=== PATIENT | female | born 1960 | race Caucasian/White ===

== ENCOUNTER 2019-05-11 12:58 | Outpatient (CLI) | payer BC, SELFPAY ==
--- NOTE | ~2019-05-11 | US_ITS ---
EXAMINATION: US right upper quadrant EXAM DATE: 05/11/2019 13:45 INDICATION: Alcoholic cirrhosis. Cholecystectomy. TECHNIQUE: Multiple grayscale and Doppler images of the abdomen right upper quadrant were obtained (meg y a technologist who performed the scan) and subsequently reviewed. There is no prior study for valentín king. FINDINGS: The pancreatic head and body are normal in appearance. The pancreatic tail is not visualized. Nodul ar liver contour consistent with cirrhosis. There are no focal liver lesions identified. There is no evidence of intrahepatic biliary duct dilation. Portal venous flow was seen in the hepatopedal, n ormal direction and has normal Doppler waveform. No right-sided hydronephrosis. Common bile duct measures 5 mm, which is normal. The gallbladder fossa is unremarkable. IMPRESSION: Nodular liver contour consistent with cirrhosis. No focal lesions. Reviewed, dictated and finalized at location A. RACT PROJECT MANAGER
== END 2019-05-11 12:59 | disposition home or self-care (01) ==
LOC: ANHIMG 13:07
PROVIDERS: PCP Family Medicine
DX: K70.30 Alcoholic cirrhosis of liver without ascites (principal)
CPT/HCPCS: 76705

== ENCOUNTER 2019-11-22 09:42 | Outpatient (CLI) | payer BC, SELFPAY ==
--- NOTE | ~2019-11-22 | CT_ITS ---
EXAMINATION: CT abdomen pelvis w con INDICATION: Alcoholic cirrhosis of the liver without ascites TECHNIQUE: Computed tomographic images of the abdomen and pelvis were obtained after the administrati on of 100 cc of Omnipaque 350 intravenous contrast. The dose-length product (DLP) was 1013.88 mGy-cm. Automated exposure control and iterative reconstruction technique were employed. COMPARISON: 10/27/2018 FINDINGS: The lung bases are clear. The heart size is normal. The liver surface is nodular, consisten t with history of cirrhosis. No focal liver lesion is identified. The gallbladder is surgically absen t. The spleen, pancreas, and adrenal glands are normal. The kidneys are unremarkable. No pathological ly enlarged abdominal or pelvic lymph nodes are identified. There is no free intraperitoneal gas or e vidence of bowel obstruction. There is enhancement of the ileocecal valve with wall thickening and sl ight extension of soft tissue density into the pericecal soft tissues at the cranial aspect of the te rminal ileum. There is no ascites. The appendix is not visualized. There is mild lumbar spondylosis. IMPRESSION: 1. Cirrhosis without evidence of ascites. 2. Wall thickening and adjacent soft tissue density of the terminal ileum. Findings could reflect Director Physical Therapy hn's disease with a blind-ending fistula or chronic diverticulitis. Reviewed, dictated and finalized at location A. IMPRESSION: 1. Cirrhosis without evidence of ascites. 2. Wall thickening and adjacent soft tissue density of the terminal ileum. Find ings could reflect Crohn's disease with a blind-ending fistula or chronic diver ticulitis.
[2019-11-22 10:10] LABS: Estimated Glomerular Filt Rate > 60
== END 2019-11-22 09:43 | disposition home or self-care (01) ==
PROVIDERS: PCP Family Medicine; Visit Provider Internal Medicine Gastroenterology
DX: K70.30 Alcoholic cirrhosis of liver without ascites (principal)
CPT/HCPCS: 36415; 74177; Q9967

== ENCOUNTER 2019-11-28 21:16 | Emergency (ER) | payer BC, SELFPAY ==
--- NOTE | ~2019-11-28 | XR_ITS ---
EXAMINATION: XR abdomen NG/feed tube insert EXAM DATE: 11/29/2019 01:25 INDICATION: Perforation. Nasogastric tube placement. TECHNIQUE: Frontal projection(s) of the abdomen for interpretation. There is no prior study for valentín king. FINDINGS: Feeding tube with tip projecting over gastric body/antrum, expected position. Nonobstructi ve upper abdominal bowel gas pattern. There are no osseous abnormalities identified. IMPRESSION: Feeding tube in position. Reviewed, dictated and finalized at location A. IMPRESSION: Feeding tube in position.
--- NOTE | ~2019-11-28 | CT_ITS ---
EXAMINATION: CT chest abdomen w con DATE: 11/28/2019 22:49 INDICATION: Abdomen pain. Cirrhosis. TECHNIQUE: Computed tomography (CT) of the abdomen and pelvis was performed with 100 cc Omnipaque 350 intravenous contrast. The dose-length product was 989.46 mGy-cm. Automated exposure control and iter ative reconstruction technique were employed. COMPARISON: CT dated 11/22/2019. FINDINGS: Lung bases are unremarkable. Heart size normal. No significant pleural or pericardial effus ion. There is moderate free intraperitoneal air. There is abnormal thickening of multiple small bowel loop s in the expected location of the terminal ileum with surrounding phlegmonous change in the mesentery . There is a fluid collection in the right pelvis above the liver, consistent with abscess. This flui d collection measures proximally 4.2 cm AP x2.5 cm transverse x4.7 cm craniocaudal. Cirrhosis of the liver. The spleen, pancreas, adrenal glands and kidneys are unremarkable. Complex fl uid and gas in the right lower abdomen pain, suspicious for second site of abscess. No acute osseous abnormality. IMPRESSION: 1. Progression of abnormally thickened distal small bowel in the expected location of the terminal il eum with surrounding mesenteric phlegmonous change. Findings suspicious for inflammatory bowel diseas e such as Crohn's disease. There is free intraperitoneal air, consistent with perforation with at m[address] 2 separate abnormal fluid collections, compatible with abscess formation. Dr. Sagastume discussed with Dr. Yenifer Leo MD at 11/28/2019 23:02 CDT. Reviewed, dictated and finalized at location A. IMPRESSION: 1. Progression of abnormally thickened distal small bowel in the expected locat ion of the terminal ileum with surrounding mesenteric phlegmonous change. Findi ngs suspicious for inflammatory bowel disease such as Crohn's disease. There is free intraperitoneal air, consistent with perforation with at least 2 separate abnormal fluid collections, compatible with abscess formation. Dr. Sagastume discussed with Dr. Yenifer Leo MD at 11/28/2019 23:02 CDT.
[2019-11-28 21:29] VITALS: BP 123/61; PULSE 113; RESP 17; TEMP 36.2; O2SAT 96
[2019-11-28 22:05] LABS: Basophils Percent Auto 0.3 % (0.2-1.2); Eosinophils Percent Auto 0.1 % (0-4.4); Hematocrit 41.6 % (37.0-47.0); Hemoglobin 14.4 g/dL (12.0-15.0); Immature Granulocyte Absolute 0.06 K/mm3 (0.00-0.031); Immature Granulocyte Percent A 0.4 % (0-0.5); Lymphocytes Absolute Auto 0.83 K/mm3 (0.9-3.2); Lymphocytes Percent Auto 5.6 % (18.3-44.2); Mean Corpuscular HGB Conc 34.6 g/dl (32-36); Mean Corpuscular Hemoglobin 31.8 pg (26-34); Mean Corpuscular Volume 91.8 fl (80-100); Mean Platelet Volume 9.9 fl (7.4-10.4); Monocytes Absolute Auto 0.4 K/mm3 (0.1-0.6); Monocytes Percent Auto 2.7 % (2.6-8.5); Neutrophils Absolute Auto 13.6 K/mm3 (1.3-6.7); Neutrophils Percent Auto 90.9 % (45.5-73.1); Platelet Count Result 229 k/mm3 (150-375); Red Blood Count 4.53 M/mm3 (4.2-5.4); Red Cell Distribution Width 12.5 % (11.5-14.5); White Blood Count 14.9 K/mm3 (4.5-10.0)
--- NOTE | 2019-11-28 22:09 | ED.GENADULT ---
HPI - General Adult General Chief complaint: Unspecified Stated complaint: abd pain pain s/p colonoscopy. Time Seen by Provider: 11/28/19 22:09 Source: patient and family Mode of arrival: ambulatory Limitations: no limitations History of Present Illness HPI narrative: Pt with a history of hypertension, hyperlipidemia, cirrhosis who presents to the ED for evaluation of abdominal pain. Pt with recent colonoscopy at [facility] today, and now with abdominal pain. Pt with some distension as well. She denies urinary retention. Denies fever or chills. She reports nausea without emesis. She states she is not passing any gas. Patient states she had a prolonged colonoscopy, did end up requiring intubation and had a prolonged recovery time. She was discharged home from [facility] approximately 3 PM. Patient states she has had consistent abdominal pain, gas type pain throughout her abdomen since that time. Related Data Home Medications Medication Instructions Recorded Confirmed cholecalciferol (vitamin D3) 25 1,000 unit PO DAILY 02/23/19 mcg (1,000 unit) capsule mecobalamin (vitamin B12) 1,000 1,000 mcg SUBLINGUAL DAILY 02/23/19 mcg disintegrating tablet,sublingual Allergies Allergy/AdvReac Type Severity Reaction Status Date / Time YENIFER Inhibitors Allergy Unknown cough Verified 03/01/19 14:40 lisinopril Allergy Unknown COUGH Verified 03/01/19 14:40 Review of Systems Review of Systems: Narrative: CONSTITUTIONAL: Denies fever, chills, or sweats. EYES: Denies visual changes, redness, or discharge. ENT: Denies rhinorrhea, congestion, sore throat, or otalgia. CARDIOVASCULAR: Denies chest pain, palpitations, or edema. RESPIRATORY: Denies cough or dyspnea. GASTROINTESTINAL: Reports abdominal pain, nausea, denies vomiting or diarrhea GENITOURINARY: Denies dysuria or hematuria. Denies urinary retention. SKIN: Denies rash or itching. MUSCULOSKELETAL: Denies back pain, joint pain, or myalgia. NEUROLOGIC: Denies headache, numbness, or weakness. [facility] Past Medical History Medical History Arthritis of carpometacarpal (CMC) joint of both thumbs DJD of left shoulder Elevated blood uric acid level Elevated liver enzymes Essential (primary) hypertension GERD with esophagitis Irritable bowel syndrome without diarrhea Mixed hyperlipidemia Obesity, unspecified Shoulder pain, acute Unilateral primary osteoarthritis of first carpometacarpal joint, left hand Social History Social History Smoking status: Never smoker Alcohol intake: current Gender identity (if verbalized by the patient): Female Exam Narrative: Exam Narrative: GENERAL: Awake, alert, conversant HEAD: Normocephalic, atraumatic. EYES: PERRLA and EOMI. ENT: Nares clear, no rhinorrhea or epistaxis. Mucous membranes moist. NECK: Supple. CHEST: No respiratory distress, breathing even and non labored HEART: Tachycardic rate, sinus rhythm ABDOMEN: Abdominal distention, tender throughout, positive guarding EXTREMITIES: Normal range of motion. No edema. SKIN: Warm, dry, no rash. NEURO:No focal deficits. Alert and oriented x3 Course Vital Signs Vital signs: Vital Signs Temperature 36.2 C L 11/28/19 21:29 Pulse Rate 113 H 11/28/19 21:29 Respiratory Rate 17 11/28/19 21:29 Blood Pressure 123/61 11/28/19 21:29 Pulse Oximetry 96 11/28/19 21:29 Temperature 37.6 C H 11/29/19 00:28 Pulse Rate 100 11/29/19 02:20 Respiratory Rate 13 11/29/19 02:20 Blood Pressure 109/68 11/29/19 02:20 Pulse Oximetry 95 11/29/19 02:20 Medical Decision Making MDM Narrative Medical decision making narrative: Patient presented for evaluation of abdominal pain following a colonoscopy earlier today at [facility]. At the time of assessment, patient's vital signs are stable, she is mildly tachycardic. Patient has a d
[2019-11-28 22:22] LABS: Lactic Acid Reflex 2.4 mmol/L (0.7-2.1)
[2019-11-28 22:23] LABS: Alanine Aminotransferase 24 U/L (4-35); Albumin Level 3.9 g/dL (3.5-5.1); Alkaline Phosphatase 85 U/L (38-126); Anion Gap 10 mmol/L (8-16); Aspartate Amino Transferase 29 U/L (14-36); Bilirubin,Total 1.5 mg/dL (0.2-1.3); Blood Urea Nitrogen 9 mg/dL (7-17); Calcium 8.6 mg/dL (8.4-10.2); Carbon Dioxide 23 mmol/L (22-30); Chloride 101 mmol/L (98-107); Estimated CRCL calculation 78 ml/min; Estimated Glomerular Filt Rate > 60; Glucose 164 mg/dL (65-105); Lipase 22 U/L (23-300); Potassium 3.7 mmol/L (3.4-5.0); Sodium 134 mmol/L (137-145)
[2019-11-28 22:29] LABS: Add Urine Microscopic? YES; Appearance Urine Clear (Clear); Bacteria Urine Trace /hpf; Bilirubin Urine Negative (Negative); Blood Urine Negative (Negative); Color Urine Yellow (Yellow); Glucose Urine UA Negative (Negative); Ketones Urine 1+ mg/dL (Negative); Leukocyte Esterase Ur Negative LEU/UL (Negative); Mucus Urine Rare /lpf; Nitrate Urine Negative (Negative); Protein Urine Negative (Negative); RBC Urine 0-2 /hpf (0-2); Squamous Epithelial Cell Urine Moderate /hpf (Few); Urobilinogen Urine Negative mg/dL (<2.0); WBC Urine 0-3 /hpf
[2019-11-28] MEDS: ONDANSETRON INJ 4 MG/2 ML VIAL IV PUSH (22:59)
[2019-11-28] MEDS: SODIUM CHLORIDE 0.9% IV 1,000 ML 999 ML IV CONT (23:00)
[2019-11-28] MEDS: MORPHINE SULFATE 4 MG/ML INJ IV PUSH (23:01)
[2019-11-28 23:51] VITALS: PULSE 84
--- NOTE | 2019-11-29 00:24 | PC.NURSE ---
Answered triage questions for [facility].
[2019-11-29 00:28] VITALS: BP 105/60; PULSE 109; RESP 15; TEMP 37.6; O2SAT 96
[2019-11-29] MEDS: metroNIDAZOLE 500 MG/ISO 100ML 500 MG/100 ML BAG 100 MG IVPB (00:40)
[2019-11-29 01:03] LABS: Reflex Lactic Acid Yes or No Add Lactic
--- NOTE | 2019-11-29 01:15 | PC.NURSE ---
Pt. accepted at [facility] by Dr. Camejo, waiting on a bed at this time.
[2019-11-29 02:20] VITALS: BP 109/68; PULSE 100; RESP 13; O2SAT 95
--- NOTE | 2019-11-29 02:30 | PC.NURSE ---
Called [facility] for update on pt. bed. Should have a bed soon
--- NOTE | 2019-11-29 02:30 | PC.NURSE ---
Pt placed on 2L nc
--- NOTE | 2019-11-29 03:02 | PC.NURSE ---
Called report to [facility]
--- NOTE | 2019-11-29 03:03 | PC.NURSE ---
[facility] accepted patient for trasfer to [facility], ETA [id number]
--- NOTE | 2019-11-29 03:06 | PC.NURSE ---
Pt bed number is [id number] report at [phone]
[2019-11-29 04:01] VITALS: BP 110/64; PULSE 108; RESP 19; TEMP 36.8; O2SAT 93
== END 2019-11-29 04:03 | disposition short-term general hospital (02) ==
PROVIDERS: Emergency Provider Emergency Medicine; PCP Family Medicine
DX: K63.1 Perforation of intestine (nontraumatic) (principal); K63.0 Abscess of intestine; E78.5 Hyperlipidemia, unspecified; I10 Essential (primary) hypertension; K74.60 Unspecified cirrhosis of liver; K21.0 Gastro-esophageal reflux disease with esophagitis; K58.9 Irritable bowel syndrome, unspecified; E78.2 Mixed hyperlipidemia; E66.9 Obesity, unspecified; Z68.30 Body mass index [BMI] 30.0-30.9, adult; M18.9 Osteoarthritis of first carpometacarpal joint, unspecified
CPT/HCPCS: 36415; 71260; 74160; 80053; 81001; 83605; 83690; 85025; 96361; 96365; 96367; 96375; 96376; 99285; J1170; J2270; J2405; J2543; J3010; J7030; Q9967

== ENCOUNTER 2020-03-16 15:11 | Outpatient (CLI) | payer BC, SELFPAY ==
--- NOTE | ~2020-03-16 | MM_ITS ---
EXAMINATION: MM screening beatriz BI w britton HISTORY: Screening TECHNIQUE: Craniocaudal and mediolateral oblique 3-D tomosynthesis images were obtained and synthetic 2-D images were generated. CAD analysis was submitted and interpreted. COMPARISON: Comparison to multiple prior studies sequentially, with oldest reviewed study dated 06/15. BREAST PARENCHYMAL COMPOSITION: There are scattered areas of fibroglandular density. FINDINGS: There is no evidence of suspicious mass, calcification, or architectural distortion to sugg est malignancy in either breast. There has been no suspicious interval change. IMPRESSION: 1. No mammographic evidence of malignancy. 2. Recommend routine screening mammography in one year. BI-RADS Category 1: Negative Reviewed, dictated and finalized at location A. ER UP
== END 2020-03-16 15:12 | disposition home or self-care (01) ==
LOC: ANHIMG 15:12
PROVIDERS: PCP Family Medicine; Visit Provider Family Medicine
DX: Z12.31 Encounter for screening mammogram for malignant neoplasm of breast (principal)
CPT/HCPCS: 77063; 77067

== ENCOUNTER 2020-06-26 14:59 | Outpatient (CLI) | payer BC, SELFPAY ==
--- NOTE | ~2020-06-26 | CT_ITS ---
EXAMINATION: CT abdomen wo/w con DATE: 06/26/2020 15:40 INDICATION: Cirrhosis of the liver TECHNIQUE: Computed tomography (CT) of the abdomen was performed without Jose Martin swelling with 100 c c Omnipaque 350 intravenous contrast. Automated exposure control and iterative reconstruction [employer] ue were employed. Exam dose: 1930.37 mGy-cm total exam DLP. COMPARISON: 11/24/2019 CT chest abdomen 11/22/2019 CT abdomen pelvis FINDINGS: The lung bases are clear of infiltrate or consolidation. Heart size is normal. No pericardi al or pleural effusion. Status post cholecystectomy. No bile duct or pancreatic duct dilatation. There is surface nodularity of liver consistent with clinical history of cirrhosis. Hepatic steatosis . No hepatic space-occupying mass lesion is detected. Splenic size is within normal range. Normal morphology of the adrenal glands. No urinary tract calculus or hydroureter nephrosis is evident. No renal mass lesion. Normal caliber of the abdominal aorta. No intraperitoneal or retroperitoneal mass lesion or adenopath y or ascites. Duodenal diverticulum. Status post right colectomy. Fat-containing umbilical hernia. No suspicious osteolytic or osteoblastic lesions are noted. IMPRESSION: Cirrhosis and hepatic steatosis Status post right colectomy Reviewed, dictated and finalized at Location A. Reviewed, dictated and finalized at location B.
[2020-06-26 15:32] LABS: Estimated Glomerular Filt Rate > 60
== END 2020-06-26 15:00 | disposition home or self-care (01) ==
PROVIDERS: PCP Family Medicine; Visit Provider Internal Medicine Gastroenterology
DX: C7B.8 Other secondary neuroendocrine tumors (principal); K74.60 Unspecified cirrhosis of liver; Z90.49 Acquired absence of other specified parts of digestive tract; K76.0 Fatty (change of) liver, not elsewhere classified; K42.9 Umbilical hernia without obstruction or gangrene; K57.10 Diverticulosis of small intestine without perforation or abscess without bleeding
CPT/HCPCS: 74170; Q9967

== ENCOUNTER → 2020-09-27 12:08 | Outpatient (CLI) | payer BC, SELFPAY ==
--- NOTE | ~2020-09-27 | XR_ITS ---
XR shoulder RT min 2V 09/27/2020 12:22 INDICATION: Right shoulder pain PROCEDURE: 4 views right COMPARISON: No prior studies for comparison. FINDINGS: Fracture, dislocation or subluxation is not identified. The soft tissues appear within norm al limits. No foreign bodies are identified. IMPRESSION: 1: NO ACUTE BONE OR JOINT ABNORMALITY IDENTIFIED. Reviewed, dictated and finalized at location B.
== END ==
PROVIDERS: Visit Provider Physician Assistant
DX: M75.81 Other shoulder lesions, right shoulder (principal)
CPT/HCPCS: 73030

== ENCOUNTER 2021-04-18 14:55 | Outpatient (CLI) | payer BC, SELFPAY ==
--- NOTE | ~2021-04-18 | MM_ITS ---
EXAMINATION: MM screening beatriz BI w britton HISTORY: Screening TECHNIQUE: Craniocaudal and mediolateral oblique 3-D tomosynthesis images were obtained and synthetic 2-D images were generated. CAD analysis was submitted and interpreted. COMPARISON: Comparison to multiple prior studies sequentially, with oldest reviewed study dated 06/15. BREAST PARENCHYMAL COMPOSITION: There are scattered areas of fibroglandular density. FINDINGS: There is no evidence of suspicious mass, calcification, or architectural distortion to sugg est malignancy in either breast. There has been no suspicious interval change. IMPRESSION: 1. No mammographic evidence of malignancy. 2. Recommend routine screening mammography in one year. BI-RADS Category 1: Negative Reviewed, dictated and finalized at location A. NG CAPTAIN
== END 2021-04-18 14:56 | disposition home or self-care (01) ==
LOC: ANHIMG 14:56
PROVIDERS: PCP Family Medicine; Visit Provider Family Medicine
DX: Z12.31 Encounter for screening mammogram for malignant neoplasm of breast (principal)
CPT/HCPCS: 77063; 77067

== ENCOUNTER → 2021-08-23 16:11 | Outpatient (CLI) | payer BC, SELFPAY ==
--- NOTE | ~2021-08-23 | XR_ITS ---
XR knee LT min 4V 08/23/2021 16:34 Indication: Knee pain Procedure: 4 views left knee Comparison: No prior studies for comparison. Findings: There is mild-moderate osteoarthritis of the left knee.No fracture, subluxation or dislocat ion. No significant joint effusion. No foreign bodies. Impression: 1: Mild-moderate osteoarthritis of the left knee. Reviewed, dictated and finalized at location B. Impression: 1: Mild-moderate osteoarthritis of the left knee.
--- NOTE | ~2021-08-23 | XR_ITS ---
EXAMINATION: XR knee RT min 4V DATE: 08/23/2021 16:34 INDICATION: Right knee pain. TECHNIQUE: 4 views of right knee including standing views were obtained. COMPARISON: None. FINDINGS: Bone alignment is normal. No fracture. There is moderate osteoarthritis of medial compartme nt and mild osteoarthritis of lateral and patellofemoral compartments. There is a small knee joint ef fusion. IMPRESSION: 1. Moderate right knee osteoarthritis. 2. Small right knee joint effusion. Reviewed, dictated and finalized at location A.
== END ==
PROVIDERS: PCP Physician Assistant; Visit Provider Physician Assistant
DX: M16.0 Bilateral primary osteoarthritis of hip (principal); M25.461 Effusion, right knee
CPT/HCPCS: 73564

== ENCOUNTER 2022-01-21 10:36 | Outpatient (CLI) | payer BC, SELFPAY ==
--- NOTE | ~2022-01-21 | US_ITS ---
EXAMINATION: US abdomen limited DATE: 01/21/2022 10:59 INDICATION: Cirrhosis TECHNIQUE: Multiple grayscale and Doppler ultrasound images of the abdomen were obtained. COMPARISON: 05/11/2019 FINDINGS: The head and body of the pancreas are normal. The pancreatic tail is obscured by bowel gas. The liver is normal with normal echogenicity and echotexture. There is mild nodularity of the liver surface. Normal hepatopetal flow in the main portal vein. The gallbladder is surgically absent. The n ormal common bile duct measures 5 mm. IMPRESSION: 1. Nodularity of the liver surface, consistent with history of cirrhosis. Reviewed, dictated and finalized at location A.
== END 2022-01-21 10:37 | disposition home or self-care (01) ==
PROVIDERS: PCP Emergency Medicine; Visit Provider Internal Medicine Gastroenterology
DX: K74.60 Unspecified cirrhosis of liver (principal)
CPT/HCPCS: 76705

== ENCOUNTER 2022-04-14 09:08 | Outpatient (CLI) | payer BC, SELFPAY ==
--- NOTE | ~2022-04-14 | NM_ITS ---
EXAMINATION: NM elias stress w perfusion DATE: 04/14/2022 11:53 INDICATION: Chest pain. TECHNIQUE: Rest images were obtained following intravenous administration of 8.9 mCi Tc99m tetrofosmi n (Myoview). The patient was infused intravenously with Lexiscan (regadenoson). Then, 20.3 mCi Tc99m tetrofosmin (Myoview) was administered intravenously, and stress images were obtained. Data was recon structed into short axis and horizontal and vertical long axis SPECT images. Gated SPECT images were also obtained. COMPARISON: CT abdomen 06/26/2020 FINDINGS: There is a small, mild, fixed perfusion defect involving apical lateral segment of left vicky tricle, consistent with infarct. No reversible component to suggest ischemia. There is no segmental w all motion abnormality. Left ventricular ejection fraction measures > 70%. IMPRESSION: 1. Small area of mild infarct involving apical lateral segment of left ventricle. 2. Normal left ventricular ejection fraction measuring >70%. Reviewed, dictated and finalized at location A. H CUTTER IMPRESSION: 1. Small area of mild infarct involving apical lateral segment of left ventricl e. 2. Normal left ventricular ejection fraction measuring >70%.
--- NOTE | 2022-04-14 09:46 | EST_ITS ---
Patient Info Name: Serena Roman Age: 62 years : 1960 Gender: Female Ht: 65 in Wt: 200 lbs BSA: 2.07 m2 HR: 63 bpm BP: 102 / 75 mmHg Heart Rhythm: Sinus Rhythm Exam Date: 04/14/2022 10:10 AM Exam Location: [facility] Stress Patient Status: Outpatient Admit Date: 04/14/2022 Staff Ordering Physician: Francisco Casarez MD Attending Provider: Francisco Caasrez MD Exercise Technologist: Mayi Conroy CT Exercise Physician: Scottie Coulter DO Exam Type: CA stress elias w NM Study Info Indications R07.9 - Chest pain, unspecified A regadenoson stress test was performed. Summary 1. 1. Negative lexiscan stress test for ischemic ST changes by ECG criteria. 2. 2. Stable hemodynamics throughout the test. 3. 3. Nuclear scan to follow and will be reported separately. Please correlate with it. 4. 4. Patient informed of the above results. Protocol: Lexiscan Stress ECG Details Stage: REST Duration (min): 1 min : 25 sec HR (bpm): 62 SBP (mmHg): 102 DBP (mmHg): 75 Stage: REST Duration (min): 14 min : 19 sec HR (bpm): 64 SBP (mmHg): 102 DBP (mmHg): 75 Stage: STAGE 1 Duration (min): 0 min : 59 sec HR (bpm): 80 SBP (mmHg): 102 DBP (mmHg): 77 Stage: RECOVERY Duration (min): 1 min : 0 sec HR (bpm): 83 SBP (mmHg): 102 DBP (mmHg): 77 Stage: RECOVERY Duration (min): 2 min : 0 sec HR (bpm): 83 SBP (mmHg): 102 DBP (mmHg): 77 Stage: RECOVERY Duration (min): 3 min : 0 sec HR (bpm): 80 SBP (mmHg): 106 DBP (mmHg): 72 Stage: RECOVERY Duration (min): 3 min : 0 sec HR (bpm): 80 SBP (mmHg): 106 DBP (mmHg): 72 Rest HR: 64 bpm Peak HR: 85 bpm Rest Sys BP: 102 mmHg Peak Sys BP: 106 mmHg Max Pred HR: 156 bpm % Max Pred HR: 54 % Target HR: 133 bpm Max RPP: 9,010 bpm*mmHg Termination Reason: Completed protocol Cardiac Symptoms: Shortness of breath Total Time: 1 min : 0 sec Rest Dubois BP: 75 mmHg Peak Dubois BP: 72 mmHg Total Dose: 0.4 mg Resting ECG Sinus rhythm, delayed precordial R/S transition, low voltage- precordial leads, borderline T wave in ant/inf leads. Report Signatures
== END 2022-04-14 09:09 | disposition home or self-care (01) ==
PROVIDERS: PCP Emergency Medicine; Visit Provider Emergency Medicine
DX: R07.9 Chest pain, unspecified (principal)
CPT/HCPCS: 78452; 93017; A9502; J2785

== ENCOUNTER 2022-07-14 13:12 | Outpatient (CLI) | payer BC, SELFPAY ==
--- NOTE | ~2022-07-14 | US_ITS ---
US abdomen limited INDICATION: Cirrhosis PROCEDURE: Realtime right upper abdominal ultrasound. COMPARISON: No prior studies for comparison. FINDINGS: The pancreas is normal without focal mass or pancreatic ductal dilation. Liver echotexture is heterogeneous and slightly increased. Liver surface is nodular, compatible with cirrhosis. No dis crete hepatic masses are seen. There is normal directional flow in the portal vein. Gallbladder surgically absent. Common bile duct measures 6 mm. No sonographic King's sign. IMPRESSION: 1: Cirrhosis. Reviewed, dictated and finalized at location B. IMPRESSION: 1: Cirrhosis.
== END 2022-07-14 13:13 | disposition home or self-care (01) ==
PROVIDERS: PCP Emergency Medicine; Visit Provider Internal Medicine Gastroenterology
DX: K74.69 Other cirrhosis of liver (principal)
CPT/HCPCS: 76705

== ENCOUNTER 2022-09-12 14:54 | Outpatient (CLI) | payer BC, SELFPAY ==
--- NOTE | ~2022-09-12 | MM_ITS ---
EXAMINATION: MM screening beatriz BI w britton HISTORY: Screening TECHNIQUE: Craniocaudal and mediolateral oblique 3-D tomosynthesis images were obtained and synthetic 2-D images were generated. CAD analysis was submitted and interpreted. COMPARISON: Comparison to multiple prior studies sequentially, with oldest reviewed study dated 11/2014. BREAST PARENCHYMAL COMPOSITION: Breast composition is almost entirely fatty FINDINGS: There is no evidence of suspicious mass, calcification, or architectural distortion to sugg est malignancy in either breast. There has been no suspicious interval change. IMPRESSION: 1. No mammographic evidence of malignancy. 2. Recommend routine screening mammography in one year. BI-RADS Category 1: Negative Reviewed, dictated and finalized at location A.
== END 2022-09-12 14:55 | disposition home or self-care (01) ==
LOC: ANHIMG 14:58
PROVIDERS: PCP Emergency Medicine; Visit Provider Emergency Medicine
DX: Z12.31 Encounter for screening mammogram for malignant neoplasm of breast (principal)
CPT/HCPCS: 77063; 77067

== ENCOUNTER 2023-02-16 12:40 | Outpatient (CLI) | payer MEDICARE, SELFPAY ==
--- NOTE | ~2023-02-16 | US_ITS ---
EXAMINATION: US abdomen limited DATE: 02/16/2023 13:58 INDICATION: Cirrhosis, unspecified. TECHNIQUE: Multiple grayscale and Doppler ultrasound images of the abdomen were obtained. COMPARISON: Ultrasound 07/14/2022 FINDINGS: The visualized portions of the head and body of pancreas are normal. The liver demonstrates surface nodularity and coarsened echotexture, consistent with cirrhosis. The gallbladder is absent. The common duct is normal and measures 3 mm. There is normal flow in main portal vein. IMPRESSION: 1. Cirrhosis of the liver. Reviewed, dictated and finalized at location A. M FLATTENER IMPRESSION: 1. Cirrhosis of the liver.
== END 2023-02-16 12:41 | disposition home or self-care (01) ==
PROVIDERS: PCP Emergency Medicine; Visit Provider Internal Medicine Gastroenterology
DX: K74.60 Unspecified cirrhosis of liver (principal)
CPT/HCPCS: 76705

== ENCOUNTER 2023-09-15 14:39 | Outpatient (CLI) | payer MEDICARE, SELFPAY ==
--- NOTE | ~2023-09-15 | DEXA_ITS ---
Bone Density Report Name: JARROD ANDRE Age: 63 Sex: Female Ethnicity: White Date of : 1960 Indication: postmenopausal; screening for osteoporosis; parental hip fracture; history of glucocorticoids; cancer; hysterectomy; Referring Provider: RACHEL HOWARD Study: Bone densitometry was performed. Exam Date: September 15, 2023 Accession number: [id number] Bone Density: Region BMD T-score Z-score Classification AP Spine(L1-L4) 1.202 1.4 3.2 Normal Femoral Neck (Left) 0.847 0.0 1.5 Normal Total Hip (Left) 1.144 1.7 2.9 Normal Femoral Neck (Right) 0.857 0.1 1.6 Normal Total Hip (Right) 1.084 1.2 2.4 Normal Total Hip Mean 1.114 1.5 2.7 Normal World Health Organization criteria for BMD impression classify patients as: Normal (T-score at or above -1.0), Osteopenia (T-score between -1.0 and -2.5), or Osteoporosis (T-score at or below -2.5). 10-year Fracture Risk: FRAX not reported because: All T-scores for Spine Total, Hip Total, Femoral Neck at or above -1.0 Clinical Information Provided by Patient: Parent has had a hip fracture Has taken Glucocorticoids Has used the following medications: Vitamin D Has the following medical conditions: Cancer, Hysterectomy Patient maximum height was 65 Menopause Age: 19 No regular weight bearing exercise Drinks caffeinated beverages Onset of menses at age 12 Number of children 0 Impression: The patient has normal bone mass. The patient has risk factors, including: parental hip fracture, history of glucocorticoid therapy. Discussion: BONE DENSITY IS ABOVE THE MINIMUM DESIRABLE LEVEL AT ALL SKELETAL SITES TESTED. This patient?s bone mineral density is above the minimum desirable level (T-score -1.0 or better) at all sites measured. The patient should follow a healthful lifestyle (good nutrition with adequate calcium and vitamin D, and appropriate weight-bearing exercise). Follow-Up: Consider repeating this study in 5 years or sooner if there is some new clinical indication. Reported by: KARRI on 09/15/2023 3:23:00 PM. Reviewed, dictated and finalized at location ARosanna TOWNSEND
--- NOTE | ~2023-09-15 | MM_ITS ---
EXAMINATION: MM screening beatriz BI w britton HISTORY: Screening TECHNIQUE: Craniocaudal and mediolateral oblique 3-D tomosynthesis images were obtained and synthetic 2-D images were generated. CAD analysis was submitted and interpreted. COMPARISON: Comparison to multiple prior studies sequentially, with oldest reviewed study dated 04/2015. BREAST PARENCHYMAL COMPOSITION: Not dense: There are scattered areas of fibroglandular density. FINDINGS: There is no evidence of suspicious mass, calcification, or architectural distortion to sugg est malignancy in either breast. There has been no suspicious interval change. IMPRESSION: 1. No mammographic evidence of malignancy. 2. Recommend routine screening mammography in one year. BI-RADS Category 1: Negative Reviewed, dictated and finalized at location B.
== END 2023-09-15 14:40 | disposition home or self-care (01) ==
PROVIDERS: PCP Emergency Medicine; Visit Provider Emergency Medicine
DX: Z12.31 Encounter for screening mammogram for malignant neoplasm of breast (principal); Z78.0 Asymptomatic menopausal state
CPT/HCPCS: 77063; 77067; 77080

== ENCOUNTER 2023-12-21 13:21 | Outpatient (CLI) | payer MEDICARE, SELFPAY ==
--- NOTE | 2023-12-21 13:57 | ECHO_ITS ---
Patient Info Name: Serena Humphries Age: 63 years : 1960 Gender: Female Ht: 65 in Wt: 177 lbs BSA: 1.94 m2 HR: 73 bpm BP: 103 / 71 mmHg Heart Rhythm: Sinus Rhythm Technical Quality: Good Exam Date: 12/21/2023 2:15 PM Exam Location: Echo Lab Patient Status: Outpatient Admit Date: 12/21/2023 Staff Ordering Physician: Scottie Coulter DO Cartoonist Special Effects: Jesi Gilmore RDCS Attending Provider: Scottie Coulter DO Referring Physician: Yfn AGUILAR; Exam Type: CA echo doppler color flow Study Info Indications - other benign neuroendocrine tumors Complete two-dimensional, color flow and Doppler transthoracic echocardiogram is performed. Summary 1. Complete two-dimensional, color flow and Doppler transthoracic echocardiogram is performed. 2. Left ventricular chamber dimension is normal. 3. Left ventricular systolic function is normal, estimated at 60-65%. 4. The left ventricular diastolic function is grade I diastolic dysfunction. 5. E/e' 7 is not elevated. 6. No pulmonary hypertension, estimated pulmonary arterial systolic pressure is 16 mmHg. Left Ventricle E/e' 7 is not elevated. Left ventricular chamber dimension is normal. Left ventricular systolic function is normal, estimated at 60-65%. The left ventricular diastolic function is grade I diastolic dysfunction. Right Ventricle Right ventricular systolic function is normal and with normal TAPSE 2.2 cm. Right ventricular chamber dimension is normal. Left Atria Left atrial chamber dimension is normal. Right Atria Right atrial chamber dimension is normal. Aortic Valve The aortic valve is trileaflet. There is no aortic valve stenosis. There is no aortic valve regurgitation. Pulmonic Valve There is no pulmonic regurgitation. Mitral Valve There is no mitral valve stenosis. There is no mitral valve regurgitation. Tricuspid Valve There is no tricuspid valve regurgitation. No pulmonary hypertension, estimated pulmonary arterial systolic pressure is 16 mmHg. Pericardium/Pleural There is no pericardial effusion. Inferior Vena Cava Normal inferior vena cava with >50% collapse upon inspiration consistent with normal right atrial pressure, 5 mmHg. Aorta The aortic root size at the sinus of Valsalva is normal. Left Ventricular Outflow Tract Name Value Normal LVOT 2D LVOT Diameter 1.9 cm LVOT Doppler LVOT Peak Gradient 5 mmHg LVOT Mean Gradient 3 mmHg LVOT VTI 23 cm LVOT VTI/AV VTI Ratio 1.0 LVOT Stroke Volume 64 ml LVOT CO 4.5 l/min LVOT CI 2.3 l/min/m2 Pulmonic Valve Name Value Normal PV Doppler PV Peak Gradient 3 mmHg Mitral Valve Name Value
== END 2023-12-21 13:22 | disposition home or self-care (01) ==
LOC: ANHCARD 13:22
PROVIDERS: PCP Emergency Medicine; Visit Provider Internal Medicine Cardiovascular Disease
DX: D3A.8 Other benign neuroendocrine tumors (principal); I25.10 Atherosclerotic heart disease of native coronary artery without angina pectoris
CPT/HCPCS: 93306

== ENCOUNTER 2024-09-07 09:14 | Outpatient (CLI) | payer MEDICARE, SELFPAY ==
--- NOTE | ~2024-09-07 | US_ITS ---
US abdomen limited INDICATION: Alcoholic cirrhosis PROCEDURE: Realtime right upper abdominal ultrasound. COMPARISON: No prior studies for comparison. FINDINGS: The pancreas is normal without focal mass or pancreatic ductal dilation. Liver surface clay ears nodular, consistent with cirrhosis. There is normal directional flow in the portal vein. Gallbladder is surgically absent. Common bile duct measures 4.5 mm. No sonographic King's sign. IMPRESSION: 1: Cirrhosis of the liver. Reviewed, dictated and finalized at location A. IMPRESSION: 1: Cirrhosis of the liver.
--- OUTSIDE RECORDS SUMMARY | 2024-09-07 09:23 | XMS_ITS | Encounter Summary ---
Author Organization [facility] Address [address] [place] [address] Phone Care Team Providers Care Legal Administrator Name Role Phone Lore Camejo MD Unavailable [phone] Leslie Piña MD Unavailable [phone] Harry Moser MD Unavailable [phone] Crys Nye Primary Care Provider Francisco Casarez MD Primary Care Provider [phone] Aleah Schwartz MD Primary Care Provider + Encounter Details Date Type Department Care Team (Latest Contact Info) Description 06/26/2020 Orders Only [facility] Scanning, Provider Social History Tobacco Use Types Packs/Day Years Used Date Smoking Tobacco: Never Smokeless Tobacco: Never Alcohol Use Standard Drinks/Week Comments Not Currently 0 (1 standard drink = 0.6 oz pur e alcohol) Previously heavy Comments No Sex and Gender Information Value Date Recorded Sex Assigned at Not on file 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 Gender Identity Not on file Sexual Orientation Not on file documented as of this encounter Plan of Treatment Not on file documented as of this encounter Procedures Procedure Name Priority Date/Time Associated Diagnosis Comments SCAN - RADIOLOGY/IMAGING 06/26/2020 documented in this encounter Results * SCAN - RADIOLOGY/IMAGING (06/26/2020) Anatomical Region Laterality Modality Other Provider Scanning Final Result documented in this encounter Visit Diagnoses Not on filedocumented in this encounter Care Teams Legal Administrator Relationship Specialty Start Date End Date Crys Nye PA [address] [place] [address] PCP - General Physician Engine Lathe Tender 11/25/21 08/24/22 Francisco Casarez MD [address] [place] [address] PCP - General Family Medicine 08/25/22 02/17/24 Aleah Schwartz MD [address] [place] [address] [place] [address] PCP - General Family Medicine 02/18/24 Lore Camejo MD Consulting Physician Colon and Rectal Surgery 12/14/19 Leslie Piña MD [address] [place], [place] [id number] Medical Oncology 08/21/21 Harry Moser MD [address] [place] [address] Transplant Hepatology 08/21/21 documented as of this encounter
--- OUTSIDE RECORDS SUMMARY | 2024-09-07 09:23 | XMS_ITS | Encounter Summary ---
Author Organization [facility] Healthcare Address [address] [place] [address] Care Team Providers Care Needle Straightener Name Role Phone Lore Camejo MD Unavailable [phone] Leslie Piña MD Unavailable [phone] Harry Moser MD Unavailable [phone] Crys Nye Primary Care Provider Francisco Casarez MD Primary Care Provider [phone] Aleah Schwartz MD Primary Care Provider + Encounter Details Date Type Department Care Team (Late st Contact Info) Description 02/07/2020 Telephone [facility] [place] [address] Janet Long, RT Social History Tobacco Use Types Packs/Day Years Used Date Smoking Tobacco: Never Smokeless Tobacco: Never Alcohol Use Standard Drinks/Week Comments Not Currently 0 (1 standard drink = 0.6 oz pur e alcohol) Previously heavy Comments No Sex and Gender Information Value Date Recorded Sex Assigned at Not on file 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 Gender Identity Not on file Sexual Orientation Not on file documented as of this encounter Plan of Treatment Not on file documented as of this encounter Visit Diagnoses Not on filedocumented in this encounter Care Teams Needle Straightener Relationship Specialty Start Date End Date Crys Nye PA [address] [place] [address] PCP - General Physician Gas Pumping Station Supervisor 11/25/21 08/24/22 Francisco Casarez MD [address] [place] [address] PCP - General Family Medicine 08/25/22 02/17/24 Aleah Schwartz MD [address] [place] [address] [place] [address] PCP - General Family Medicine 02/18/24 Lore Camejo MD Consulting Physician Colon and Rectal Surgery 12/14/19 Leslie Piña MD [address] [place] [address] Medical Oncology 08/21/21 Harry Moser MD [address] [place] [address] Transplant Hepatology 08/21/21 documented as of this encounter
--- OUTSIDE RECORDS SUMMARY | 2024-09-07 09:23 | XMS_ITS | Continuity of Care Document ---
Author Organization [facility] Address [id number] [place] [address] [address] [place] [address] Phone Care Team Providers Care Client Specialist Name Role Phone Jone Figueroa Unavailable Unavailable Advance Directives Directive Yes / No Effective Date File Name No Information Encounters Encounter Description Practice Location Reason(s) For Visit Diagnoses Date Provider Providers Copied on Encounter [facility], [id number] [place] [address] [address], [place], [place], [id number], [place] tel:[phone] [facility] No Information [address] [facility] , [facility] [address], [place], [address], [place]. tel:[phone] Referring Provider: Africa Bermudez [facility] [address], [place], [place], [facility]. tel:[phone] Family History Family Member Type Diagnosis Age At Onset No Information Payers Payer name Insurance type Covered republican ID Authoriza tijosh(s) [employer] SOI CI [id number] Social History Type Description Quantity Date Captured Comments Sex Female Smoking Status No Information Chief Complaint And Reason For Visit No Information Reason For Referral Reason For Referral No Information History Of Present Illness Encounter Date Complaint History Of Prese nt Illness No Information Functional Status Date Functional Assessmen t No Information Instructions Date Instruction Additional Infor mation No Information Assessments Type Assessment Date No Information Patient Care Teams Name Effective Dates (start - stop) Status Members No Information
--- OUTSIDE RECORDS SUMMARY | 2024-09-07 09:23 | XMS_ITS | Encounter Summary ---
Author Organization [facility] Address [address] [place] [address] Phone Care Team Providers Care Electrical Designer Drafter Name Role Phone Lore Camejo MD Unavailable [phone] Leslie Piña MD Unavailable [phone] Harry Moser MD Unavailable [phone] Francisco Casarez MD Primary Care Provider [phone] Aleah Schwartz MD Primary Care Provider + Encounter Details Date Type Department Care Team (Latest Contact Info) Description 10/03/2022 Orders Only [facility] Scanning, Provider Social History Tobacco Use Types Packs/Day Years Used Date Smoking Tobacco: Never Smokeless Tobacco: Never Alcohol Use Standard Drinks/Week Comments Not Currently 0 (1 standard drink = 0.6 oz pur e alcohol) Previously heavy Comments No Sex and Gender Information Value Date Recorded Sex Assigned at Not on file 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 Gender Identity Not on file Sexual Orientation Not on file documented as of this encounter Plan of Treatment Not on file documented as of this encounter Procedures Procedure Name Priority Date/Time Associated Diagnosis Comments SCAN - LABS 10/03/2022 documented in this encounter Results * SCAN - LABS (10/03/2022) us Provider Scanning Final Result documented in this encounter Visit Diagnoses Not on filedocumented in this encounter Care Teams Electrical Designer Drafter Relationship Specialty Start Date End Date Francisco Casarez MD [address] [place] [address] PCP - General Family Medicine 08/25/22 02/17/24 Aleah Schwartz MD [address] [place] [address] [place] [address] PCP - General [facility] Medicine 02/18/24 Lore Camejo MD Consulting Physician Colon and Rectal Surgery 12/14/19 Leslie Piña MD [address] [place] [address] Medical Oncology 08/21/21 Harry Moser MD [address] [place] [address] Transplant Hepatology 08/21/21 documented as of this encounter
--- OUTSIDE RECORDS SUMMARY | 2024-09-07 09:23 | XMS_ITS | Encounter Summary ---
Author Organization [facility] Healthcare Address [address] [place] [address] Care Team Providers Care Medical Physics Teacher Name Role Phone Lore Camjeo MD Unavailable [phone] Leslie Piña MD Unavailable [phone] Harry Moser MD Unavailable [phone] Crys Nye Primary Care Provider Francisco Casarez MD Primary Care Provider [phone] Aleah Schwartz MD Primary Care Provider + Encounter Details Date Type Department Care Team (Late st Contact Info) Description 11/19/2018 Telephone [facility] Radiology [address] [place] [address] Vero Crawley RN Social History Tobacco Use Types Packs/Day Years Used Date Smoking Tobacco: Never Smokeless Tobacco: Never Alcohol Use Standard Drinks/Week Comments Not Currently 0 (1 standard drink = 0.6 oz pur e alcohol) Previously heavy Comments Unknown Sex and Gender Information Value Date Recorded Sex Assigned at Not on file 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 hydroCHLOROthiazi de (MICROZIDE) 12.5 mg capsule Take 12.5 mg by mouth daily 11/09/2019 added in this encounter Care Teams Medical Physics Teacher Relationship Specialty Start Date End Date Crys Nye PA [address] [place] [address] PCP - General Physician Log Rafter 11/25/21 08/24/22 Francisco Casarez MD [address] [place] [address] PCP - General Family Medicine 08/25/22 02/17/24 Aleah Schwartz MD [address] [place] [address] [place] [address] PCP - General Family Medicine 02/18/24 Lore Camejo MD Consulting Physician Colon and Rectal Surgery 12/14/19 Leslie Piña MD [address] [place] [address] Medical Oncology 08/21/21 Harry Moser MD [address] [place] [address] Transplant Hepatology 08/21/21 documented as of this encounter
--- OUTSIDE RECORDS SUMMARY | 2024-09-07 09:23 | XMS_ITS | Clinical Summary ---
Author Organization [facility] Address [address] [place] [address] Care Team Providers Care Plateman Name Role Phone Lore Camejo MD Unavailable [phone] Leslie Piña MD Unavailable [phone] Harry Moser MD Unavailable [phone] Aleah Schwartz MD Primary Care Provider + Allergies No known active allergies Medications ALPRAZolam (XANAX) 0.25 mg tablet Take 1 tablet (0.25 mg total) by mouth nightly as needed prn 2 9 Active estrogens-methy lTESTOSTERone (EEMT,COVARYX) 1.25-2.5 mg per tablet Take 1 tablet by mouth daily as needed 3 to 4 per week 5 9 Active allopurinol (ZYLOPRIM) 100 mg tablet Take 1 tablet (100 mg total) by mouth daily Active levothyroxine sodium (TIROSINT) 75 mcg capsule Take 1 capsule (75 mcg total) by mouth masticator before breakfast Active nortriptyline (PAMELOR) 10 mg capsule Take 1 capsule (10 mg total) by mouth nightly Active cholecalciferol -soy isoflavone 2,000-64 unit-mg tablet Take by mouth 2 (two) times a day Active Ozempic 0.25 mg or 0.5 mg (2 mg/3 mL) pen injector injection Q weekly 2mg 3 Active irbesartan (AVAPRO) 75 mg tablet Take 1 tablet (75 mg total) by mouth 4 Active biotin 1 mg capsule Take 6,000 mcg/day by mouth daily Active matteo/linolenic/ linoleic/oleic (matteo seed oil-omega 3-6-9) 1,000 mg (630 mg-210 mg-72mg) capsule Take 515 mg by mouth daily Active coenzyme Q10 200 mg capsule Take 1 capsule (200 mg total) by mouth daily Active metoprolol XL (TOPROL-XL) 50 mg extended release tablet Take 0.5 tablets (25 mg total) by mouth daily Active pravastatin (PRAVACHOL) 20 mg tablet 1 tablet (20 mg total) daily 4 Active Active Problems Patient Care Coordination No te Formatting of this note migh t be different from the original. 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 It is rather puzzling and troubling the pain can last for nearly 3 days. I will check a CT scan of the abdomen and pelvis. If this is unrevealing, I will likely have her return for an upper endoscopy. Further recommendations based on the results of the studies. Hypothyroid 11/05/2018 Gout 11/05/2018 Mixed hyperlipidemia 11/05/2018 Essential hypertension 11/05/2018 Alcohol dependence in remission 11/05/2018 Assessment & Plan (12/31/2023 5:54 PM CDT): She understands the importance of long-term abstinence. A return to heavy drinking would clearly lead to additional liver injury and decompensation. Alcoholic cirrhosis of liver without ascites Assessment & Plan (12/31/2023 5:54 PM CDT): No evidence of significant decompensation based on the absence of complications of portal hypertension and intact hepatic synthetic function. I will continue to screen for hepatocellular carcinoma every 6 months. She is scheduled for a CT of the spine in February,. I will see if a CT of the abdomen can be scheduled on the same day. She will return in 1 year or when clinically indicated. Assessment & Plan (12/15/2022 11:30 AM CDT): She has well-compensated alcohol related cirrhosis. Last alcohol beverage in 2018; remains sober since. Labs 09/2022 w/ nml AST/ALT, Tbili, and PLT. Today, encouraged ongoing abstinence. No evidence of ascites, or HE. No history of varices and on metoprolol which can likely act as NSBB. We will obtain next Liver US in 6 month (02/2023). We will stagger w/ her CT for NET surveillance (which will fulfill HCC screening). She will return in 1 year or earlier as clinically indicated. Assessment & Plan (11/25/2021 4:27 PM CDT): Pt with alcohol related cirrhosis and now stopped alcohol use since 2018. Her cirrhosis is well compensated. Labs from 08/2021 normal Tbili. - Continue complete alcohol abstinence - No HE - No ascites - No history of varices and she is on metoprolol that can act as NSBB - We will get next US in 02/2022, then she will have her CT for NET surveillance that will fulfill hepatoma screening. Assessment & Plan (11/10/2019 6:54 PM CDT): Well compensated and without obvious evidence of ascites or hepatic encephalopathy. I stressed the importance of ongoing efforts at alcohol abstinence. The laboratory work today shows intact hepatic synthetic function. Assessment & Plan (11/05/2018 5:21 PM CDT): For clinical history and liver biochemical abnormalities are consistent with alcoholic liver disease. The radiographic findings are consistent with cirrhosis. However, her obesity and features of the metabolic syndrome suggests there may be a component of non-alcoholic steatohepatitis. Furthermore, we have to rule out other causes of liver disease such as autoimmune hepatitis and other metabolic disorders. I will check labs today. Depending on the results, she may need a liver biopsy. I encouraged her to maintain abstinence from alcohol. She should continue with efforts at weight loss. We discussed scarring of the liver due to longstanding inflammation. This scarring can lead to an increase in pressure within the blood vessels, leading to varicose type veins in the esophagus, fluid in the abdomen, and the buildup of toxins that can cause confusion. Cirrhosis increases the risk of the development of hepatocellular carcinoma. This necessitates screening for liver cancer with an abdominal ultrasound approximately every 6 months. We discussed the potential need for a liver transplant, if liver function worsened and there are no obvious contraindications. Abnormal mammogram 12/20/2015 Encounters Date Type Department Care Team Description 08/22/2024 Telephone [facility] [address] [place] [address] [facility] [place] [address] [place] [address] Marizol Goetz 08/19/2024 Telephone [facility] [address] [place] [address] [place] [address] [place] [address] Marizol Goetz 08/08/2024 Telephone [facility] [address] [place] [address] [place] [address] [place] [address] Aleah Finn Schedule Ultrasound from Last 3 Months Immunizations Immunization Administration Dates Next Due Influenza, Quadrivalent, Spl it, Preservative Free, Intramuscular 01/09/2020,03/03/2018,02/22/2015 Influenza, Trivalent, Preser vative Free, Intramuscular 05/09/2016 Influenza, Unspecified 02/04/2021 Chitra (J&J) SARS-CoV-2 Vaccination 06/04/2020 Pneumococcal Conjugate PCV 13 02/23/2019 Surgical History Surgery Date Site/Laterality Comments HYSTERECTOMY COLONOSCOPY CHOLECYSTECTOMY BLADDER SUSPENSION US GUIDED BIOPSY LIVER 11/24/2018 N/A EXPLORATORY LAPAROTOMY W/ LAURA WEL RESECTION 11/30/2019 abdominal washout and Ileocolic resection with primary anastomosis Medical History Medical History Date Comments IBS (irritable bowel syndrome) Hypothyroidism HTN (hypertension) HLD (hyperlipidemia) Alcoholic cirrhosis (HCC) Diabetes (HCC) Family History Medical History Relation Name Comments Heart attack Father Prostate cancer Father Heart disease Mother Heart failure Mother Stroke Mother Colon cancer Sister 1 Breast cancer Sister 2 Relation Name Status Comments Father Mother Sister 1 Alive Sister 2 Social History Tobacco Use Types Packs/Day Years Used Date Smoking Tobacco: Never Smokeless Tobacco: Never Tobacco Cessation:Counseling Given: Not Answered Alcohol Use Standard Drinks/Week Comments Not Currently 0 (1 standard drink = 0.6 oz pur e alcohol) Previously heavy Comments No Sex and Gender Information Value Date Recorded Sex Assigned at Not on file Legal Sex Female 5:33 AM COLD MILL OPERATOR Gender Identity Not on file Sexual Orientation Not on file Obstetrics History Last Filed Vital Signs Vital Sign Reading Time Taken Comments Blood Pressure 97/67 03/07/2024 10:09 AM COLD MILL OPERATOR Pulse 75 03/07/2024 10:09 AM COLD MILL OPERATOR Temperature 36.4 C (97.5 F) 03/07/2024 10:09 AM COLD MILL OPERATOR Respiratory Rate 18 03/07/2024 10:0 9 AM COLD MILL OPERATOR Oxygen Saturation 96% 03/07/2024 10: 09 AM COLD MILL OPERATOR Inhaled Oxygen Concentration - - Weight 82.5 kg (181 lb 12.8 oz) 024 10:07 AM COLD MILL OPERATOR Height 165.1 cm (5' 5) 12/31/2023 2:29 PM CDT Body Mass Index 30.25 12/31/2023 2:29 PM CDT Plan of Treatment Health Maintenance Due Date Last Done Comments Breast Cancer Screening-Mammogram 1960 Depression Screening 1960 Osteoporosis Screening-Bone Density Scan 1960 DTaP/Tdap/Td Vaccine (1 - Tdap) 1969 Hepatitis B Screening 01/11/1976 Zoster Vaccine (1 of 2) 1977 Pneumococcal vaccine 65+ (2 of 2 - PPSV23) 04/20/2019 02/23/2019 Covid-19 Vaccine (2 - Jansse n risk series) 07/02/2020 06/04/2020 Fall Risk Assessment 12/05/2020 12/06/2019 Well Visit 65+ 2023 Influenza Vaccine (Season Ended) 2024 02/04/2021, 01/09/2020, 03/03/2018, Additional history exists Colon Cancer Screening-Colonoscopy 11/27/2029 11/28/2019 Hepatitis C Screening Completed 11/04/2018 Colon Cancer Screening-CT Colonography Discontinued 11/28/2019 Colon Cancer Screening-DNA Stool Discontinued 11/28/19 20 Colon Cancer Screening-FIT Discontinued 11/28/2019 Colon Cancer Screening-Sigmoidoscopy Discontinued 11/28/2019 Procedures Procedure Name Priority Date/Time Associated Diagnosis Comments COLONOSCOPY 11/28/2019 9:44 AM CDT HEPATITIS C ANTIBODY Routine 11/04/2018 1:55 PM CDT Cirrhosis, nonalcoholic (HCC) from Last 3 Months or Most Recently Relevant to Health Maintenance Results * COLONOSCOPY (11/28/2019 9:44 AM CDT) Anatomical Region Laterality Modality Other Narrative Procedure Note Florin Holliday MD - 11/28/2019 9:44 AM CDT [facility] Patient Name: Serena Humphries Procedure Date: 11/28/2019 9:44 AM Date of : 1960 Admit Type: Outpatient Age: 59 Gender: Female Attending MD: Florin Holliday M.D. Room: [facility] ENDOSCOPY ROOM 9 Note Status: Finalized Procedure: Colonoscopy Indications: Abdominal pain, Abnormal CT of the GI tract showing thickening of the terminal ileum Referring MD: Harry Moser M.D. Providers: Florin Holliday M.D. Comorbidities See notes Medicines: Monitored Anesthesia Care converted to General Anesthesia due to patient vomiting mid-procedure. Complications: No immediate complications. Estimated Blood Loss: Estimated blood loss was minimal. Procedure: Pre-Anesthesia Assessment: - Assessment per Anesthesia - Immediately prior to administration ofmedications, the patient was re-assessed for adequacy to receive sedatives. - The risks and benefits of the procedure and the sedation options and risks were discussed with the patient. All questions were answered and informed consent was obtained. The benefits, risks and alternatives of theprocedure and sedation were discussed and informed consent was obtained. All questions were answered. Please referto the signed informed consent document in the medical record. The scope was passed under direct vision.The [id number] endoscope was introduced throughthe anus and advanced to the terminal ileum. The colonoscopy was performed without difficulty. The patient tolerated the procedure fairly well. The quality of the bowel preparation was evaluated using the BBPS ([place] Bowel Preparation Scale) withscores of: Right Colon = 2 (minor amount of residualstaining, small fragments of stool and/or opaque liquid, but mucosa seen well), Transverse Colon = 3 (entiremucosa seen well with no residual staining, small fragmentsof stool or opaque liquid) and Left Colon = 2 (minor amount of residual staining, small fragments ofstool and/or opaque liquid, but mucosa seen well). Thetotal BBPS score equals 7. The bowel preparation used was NuLytely. Findings: The perianal and digital rectal examinations were normal. Pertinent negatives include no palpable rectal lesions. Inflammation characterized by erythema and scarring was found in the ileocecal valve, making intubation of the terminal ileum challenging. Biopsies of the TI/IC valve were taken with a cold forceps for histology. To close a mucosal defect after biopsies, one hemostaticclip was successfully placed. A 3 mm polyp was found in the cecum. The polyp was sessile. The polyp was removed with a cold snare. Resection and retrieval werecomplete. The exam was otherwise without abnormality on direct and retroflexion views. Impression: - Ileitis involving the TI and IC valve witherythema and scarring making TI intubation challenging. Biopsied. One clip was placed for mucosal defectseen after biopsy. - One 3 mm polyp in the cecum, removed with a cold snare. Resected and retrieved. - The examination was otherwise normal on direct and retroflexion views. Recommendation: - Await pathology results. - Further management to be determined pendingpathology results. Electronically signed by Florin Holliday MD Florin Holliday M.D. 11/28/2019 12:09:28 PM . Number of Addenda: 0 Note Initiated On: 11/28/2019 9:44 AM Recognized by the [place] [employer] for promoting quality in endoscopy us Florin Chowdhury MD ENDOSCOPY PROCEDURES Final Res ult * Hepatitis C antibody (11/04/2018 1:55 PM CDT) Hep C Ab Nonreactive Nonreactive VIJAY SLAUGHTER Comment: Interpretive Data Positive results should be confirmed by a molecular method. If positive, a second separately collected sample should be submitted for Hepatitis C Virus (HCV) RNA Detection and Quantitation by Real-Time Reverse Client Project Coordinator-PCR (RT-PCR). Current interpretive data was last revised on 2016. Blood specimen (specimen) 11/04/2018 1:55 PM CDT 11/04/2018 4:52 PM CDT us Harry Moser MD LAB MICROBIOLOGY - GEN ERAL ORDERABLES Edited Result - Final [facility] Department [place] [address] from Last 3 Months or Most Recently Relevant to Health Maintenance Insurance [id number] MEDICARE BLUE CROSS MEDICARE SUPPLEMENT [facility] MEDICARE [facility] MEDICARE SUPPLEMENT Advance Directives For more information, please contact: [phone] Documents on File Type Date Recorded Patient Hotel Office Manager Expl anation ADVANCE DIRECTIVE 12/05/2019 5:57 AM POWER OF VELOCITY SHOOTER-MEDICAL * Full Code (Latest Code Status on File) Date Activated Date Inactivated Comments 11/29/2019 4:44 AM 12/06/2019 9:10 PM * Full Code Date Activated Date Inactivated Comments 11/24/2018 2:39 PM 11/25/2018 4:49 AM Care Teams Plateman Relationship Specialty Start Date End Date Aleah Schwartz MD [address] [place] [address] [place] [address] PCP - General Family Medicine 02/18/24 Lore Camejo MD Consulting Physician Colon and Rectal Surgery 12/14/19 Leslie Piña MD [address] [place] [address] Medical Oncology 08/21/21 Harry Moser MD [address] [place] [address] Transplant Hepatology 08/21/21
--- OUTSIDE RECORDS SUMMARY | 2024-09-07 09:23 | XMS_ITS ---
Author Organization [facility] Address [address] [place] [address] Care Team Providers Care Forest Fire Specialist Supervisor Name Role Phone Lore Camejo MD Unavailable [phone] Leslie Piña MD Unavailable [phone] Harry Moser MD Unavailable [phone] Aleah Schwartz MD Primary Care Provider + Active Problems Patient Care Coordination No te Formatting of this note migh t be different from the original. 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 Last alcohol beverage in 2019; remains sober since. Labs 09/2022 w/ nml [...] cirrhosis and now stopped alcohol use since 2019. Her cirrhosis is well compensated. Labs from [...] are no obvious contraindications. Abnormal mammogram 12/20/2015 Current Treatment and Therapy Plans No current plan information found. Past Treatment and Therapy Plans No past plan information found. Lifetime Dose Tracking * Chemical Lifetime Dose Automatic Entry Manual Entr y DLP 1,184 mGycm 1,184 mGycm 0 mGycm
--- OUTSIDE RECORDS SUMMARY | 2024-09-07 09:23 | XMS_ITS | Referral Summary ---
Author Organization [facility] Address [address] [place] [address] Care Team Providers Care Turbine Engine Assembler Name Role Phone Lore Camejo MD Unavailable [phone] Leslie Piña MD Unavailable [phone] Harry Moser MD Unavailable [phone] Aleah Schwartz MD Primary Care Provider + Encounters Date Type Department Care Team Description 08/22/2024 Telephone [facility] [address] [place] [place] [address] Marizol Goetz 08/19/2024 Telephone [facility] [address] [place] [address] Marizol Goetz 08/08/2024 Telephone [facility] [address] [place] [address] [place] [address] Aleah Finn Schedule Ultrasound from Last 3 Months Allergies No known active allergies Medications ALPRAZolam [...] 1 capsule (75 mcg total) by mouth commercial loan officer before breakfast Active nortriptyline (PAMELOR) 10 mg [...] different from the original. 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 Abnormal mammogram 12/20/2015 Immunizations Immunization Administration Dates Next Due Influenza, Quadrivalent, Spl it, Preservative Free, Intramuscular 01/09/2020,03/03/2018,02/22/2015 Influenza, Trivalent, Preser vative Free, Intramuscular 05/09/2016 Influenza, Unspecified 02/04/2021 Black Drumm (J&J) SARS-CoV-2 Vaccination 06/04/2020 Pneumococcal Conjugate PCV 13 02/23/2019 Social History Tobacco Use Types Packs/Day Years Used Date Smoking Tobacco: Never Smokeless Tobacco: Never Tobacco Cessation:Counseling Given: Not Answered Alcohol Use Standard Drinks/Week Comments Not Currently 0 (1 standard drink = 0.6 oz pur e alcohol) Previously heavy Comments No Sex and Gender Information Value Date Recorded Sex Assigned at Not on file Legal Sex Female 5:33 AM ACRYLIC FABRICATOR Gender Identity Not on file Sexual Orientation Not on file Last Filed Vital Signs Vital Sign Reading Time Taken Comments Blood Pressure 97/67 03/07/2024 10:09 AM ACRYLIC FABRICATOR Pulse 75 03/07/2024 10:09 AM ACRYLIC FABRICATOR Temperature 36.4 C (97.5 F) 03/07/2024 10:09 AM ACRYLIC FABRICATOR Respiratory Rate 18 03/07/2024 10:0 9 AM ACRYLIC FABRICATOR Oxygen Saturation 96% 03/07/2024 10: 09 AM ACRYLIC FABRICATOR Inhaled Oxygen Concentration - - Weight 82.5 kg (181 lb 12.8 oz) 024 10:07 AM ACRYLIC FABRICATOR Height 165.1 cm (5' 5) 12/31/2023 2:29 PM CDT Body Mass Index 30.25 12/31/2023 2:29 PM CDT Plan of Treatment Not on file Procedures Procedure Name Priority Date/Time Associated Diagnosis [...] Female Attending MD: Florin Holliday M.D. Room: [facility] ENDOSCOPY ROOM 9 Note Status: Finalized Procedure: [...] The scope was passed under direct vision.The [id number] endoscope was introduced throughthe anus and advanced to the terminal ileum. The colonoscopy was performed without difficulty. The patient tolerated the procedure fairly well. The quality of the bowel preparation was evaluated using the BBPS ([place] Bowel Preparation Scale) withscores of: Right Colon [...] On: 11/28/2019 9:44 AM Recognized by the [place] [employer] for promoting quality in endoscopy Florin Chowdhury MD ENDOSCOPY PROCEDURES Final Res ult * Hepatitis C antibody (11/04/2018 1:55 PM CDT) Hep C Ab Nonreactive Nonreactive VIJAY [facility] Comment: Interpretive Data Positive results should be confirmed by a molecular method. If positive, a second separately collected sample should be submitted for Hepatitis C Virus (HCV) RNA Detection and Quantitation by Real-Time Reverse Ice Cream Server-PCR (RT-PCR). Current interpretive data was last revised on 2016. Blood specimen (specimen) 11/04/2018 1:55 PM CDT 11/04/2018 4:52 PM CDT Harry Moser MD LAB MICROBIOLOGY - GEN ERAL ORDERABLES Edited Result - Final [facility] Department [place] [address] from Last 3 Months or Most Recently Relevant to Health Maintenance Insurance MEDICARE BLUE CROSS MEDICARE SUPPLEMENT [employer] [address] [facility] MEDICARE [facility] MEDICARE SUPPLEMENT Advance Directives For more information, please contact: [phone] Documents on File Type Date Recorded Patient Passenger Tire Builder Expl anation ADVANCE DIRECTIVE 12/05/2019 5:57 AM POWER OF EDUCATION GENERAL MANAGER-MEDICAL * Full Code (Latest Code Status on File) Date Activated Date Inactivated Comments 11/29/2019 4:44 AM 12/06/2019 9:10 PM * Full Code Date Activated Date Inactivated Comments 11/24/2018 2:39 PM 11/25/2018 4:49 AM Care Teams Turbine Engine Assembler Relationship Specialty Start Date End Date Aleah Schwartz MD [facility] [place] [address] PCP - General Family Medicine 02/18/24 Lore Camejo MD Consulting Physician Colon and Rectal Surgery 12/14/19 Leslie Piña MD [address] [place] [address] Medical Oncology 08/21/21 Harry Moser MD [address] [place] [address] Transplant Hepatology 08/21/21
== END 2024-09-07 09:15 | disposition home or self-care (01) ==
PROVIDERS: PCP Family Medicine; Visit Provider Internal Medicine Gastroenterology
DX: K70.30 Alcoholic cirrhosis of liver without ascites (principal)
CPT/HCPCS: 76705

== ENCOUNTER 2024-11-22 13:56 | Outpatient (CLI) | payer MEDICARE, SELFPAY ==
--- NOTE | ~2024-11-22 | US_ITS ---
US arterial ankle brachial ind INDICATION: Circulatory symptoms. TECHNIQUE: Segmental pressures and plethysmographic and Doppler waveforms of the brachial and lower extremity arteries were obtained. COMPARISON: None. FINDINGS: Right and left brachial artery pressures of 113 mm Hg and 109 mm Hg, respectively, are concordant (normal difference <= 30 mmHg). The right ankle-brachial index (DONG) is 1.06 (normal >= 0.9-1.0). The right great toe-brachial index (TBI) is 1.42 (normal >= 0.60). The left DONG is 1.04. The left TBI is 1.04. IMPRESSION: 1. Normal ankle-brachial indices. Reviewed, dictated and finalized at location A.
--- OUTSIDE RECORDS SUMMARY | 2024-11-22 14:19 | XMS_ITS | Encounter Summary ---
Author Organization [facility] Address [address] [place] [address] Phone Care Team Providers Care Hanger Off Name Role Phone Lore Camejo MD Unavailable [phone] Leslie Piña MD Unavailable [phone] Harry Moser MD Unavailable [phone] Crys Nye Primary Care Provider Francisco Casarez MD Primary Care Provider [phone] Aleah Schwartz MD Primary Care Provider + [...] on file Legal Sex Female 5:33 AM SUPERVISOR PIPELINE Gender Identity Not on file Sexual Orientation [...] on filedocumented in this encounter Care Teams Hanger Off Relationship Specialty Start Date End Date Crys Nye PA [address] [place] [address] PCP - General Physician Director Of Global Sales 11/25/21 08/24/22 Francisco Casarez MD [address] [place] [address] PCP - General Family Medicine 08/25/22 02/17/24 Aleah Schwartz MD [address] [place] [address] [place] [address] PCP - General Family Medicine 02/18/24 Lore Camejo MD Consulting Physician Colon and Rectal Surgery 12/14/19 Leslie Piña MD [address] [place], [place] [id number] Medical Oncology 08/21/21 Harry Moser MD [address] [place] [address] Transplant Hepatology 08/21/21 documented as of this encounter
--- OUTSIDE RECORDS SUMMARY | 2024-11-22 14:19 | XMS_ITS ---
Author Organization [facility] Address [address] [place] [address] Care Team Providers Care Manufacturing Engineer Assembly Name Role Phone Lore Camejo MD Unavailable [phone] Leslie Piña MD Unavailable [phone] Harry Moser MD Unavailable [phone] Aleah Schwartz MD Primary Care Provider + Active Problems Patient Care Coordination No te Formatting of this note migh t be different from the original. 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
--- OUTSIDE RECORDS SUMMARY | 2024-11-22 14:19 | XMS_ITS | Encounter Summary ---
Author Organization [facility] Address [address] [place] [address] Care Team Providers Care Director Export Name Role Phone Lore Camejo MD Unavailable [phone] Leslie Piña MD Unavailable [phone] Harry Moser MD Unavailable [phone] Crys Nye Primary Care Provider Francisco Casarez MD Primary Care Provider [phone] Aleah Schwartz MD Primary Care Provider + Encounter Details Date Type Department Care Team (Late st Contact Info) Description 11/19/2018 Telephone [facility] Radiology [address] [place] [address] Vero Crawley RN Social History Tobacco Use Types Packs/Day Years Used Date Smoking Tobacco: Never Smokeless Tobacco: Never Alcohol Use Standard Drinks/Week Comments Not Currently 0 (1 standard drink = 0.6 oz pur e alcohol) Previously heavy Comments Unknown Sex and Gender Information Value Date Recorded Sex Assigned at Not on file Legal Sex Female 5:33 AM PRODUCT COORDINATOR Gender Identity Not on file Sexual Orientation [...] 11/09/2019 added in this encounter Care Teams Director Export Relationship Specialty Start Date End Date Crys Ney PA [address] [place] [address] PCP - General Physician Rn Anesthesiology 11/25/21 08/24/22 Francisco Casarez MD [address] [place] [address] PCP - General Family Medicine 08/25/22 02/17/24 Aleah Schwartz MD [address] [place] [address] [place] [address] PCP - General Family Medicine 02/18/24 Lore Camjeo MD Consulting Physician Colon and Rectal Surgery 12/14/19 Leslie Piña MD [address] [place] [address] Medical Oncology 08/21/21 Harry Moser MD [address] [place] [address] Transplant Hepatology 08/21/21 documented as of this encounter
--- OUTSIDE RECORDS SUMMARY | 2024-11-22 14:19 | XMS_ITS | Clinical Summary ---
Author Organization [facility] Address [address] [place] [address] Care Team Providers Care Parking Lot Attendant And Cashier Name Role Phone Lore Camejo MD Unavailable [phone] Leslie Piña MD Unavailable [phone] Harry Moser MD Unavailable [phone] Aleah Schwartz MD Primary Care Provider + [...] 1 capsule (75 mcg total) by mouth machine learning intern before breakfast Active nortriptyline (PAMELOR) 10 mg [...] different from the original. 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 12/28/2019 Perforated viscus 11/29/2019 Overview (11/30/2019): Added automatically from request for surgery [id number] Abdominal pain 11/24/2019 Overview (11/24/2019): Added automatically from request for surgery [id number] Pain of upper abdomen 11/10/2019 Assessment & [...] Encounters Date Type Department Care Team Description 09/07/2024 Orders Only [facility] Scanning, Provider 09/07/2024 Telephone [facility] Gasteroenterology [facility] [address]th [place] [address] [place] [address] Harry Moser MD Test Results 08/22/2024 Telephone [facility] Gastroenterology [address] [facility] 12th [place] [address] [place] [address] Marizol Goetz from Last 3 Months Immunizations Immunization Administration Dates Next Due Influenza, Quadrivalent, Spl it, Preservative Free, Intramuscular 01/09/2020,03/03/2018,02/22/2015 Influenza, Trivalent, Preser vative Free, Intramuscular 05/09/2016 Influenza, Unspecified 02/04/2021 Bloomfire (J&J) SARS-CoV-2 Vaccination 06/04/2020 Pneumococcal Conjugate PCV [...] on file Legal Sex Female 5:33 AM KIDS CLUB ATTENDANT Gender Identity Not on file Sexual Orientation Not on file Obstetrics History Last Filed Vital Signs Vital Sign Reading Time Taken Comments Blood Pressure 97/67 03/07/2024 10:09 AM KIDS CLUB ATTENDANT Pulse 75 03/07/2024 10:09 AM KIDS CLUB ATTENDANT Temperature 36.4 C (97.5 F) 03/07/2024 10:09 AM KIDS CLUB ATTENDANT Respiratory Rate 18 03/07/2024 10:0 9 AM KIDS CLUB ATTENDANT Oxygen Saturation 96% 03/07/2024 10: 09 AM KIDS CLUB ATTENDANT Inhaled Oxygen Concentration - - Weight 82.5 kg (181 lb 12.8 oz) 024 10:07 AM KIDS CLUB ATTENDANT Height 165.1 cm (5' 5) 12/31/2023 2:29 PM CDT Body Mass Index 30.25 12/31/2023 2:29 PM CDT Plan of Treatment Health Maintenance Due Date Last Done Comments Breast Cancer Screening-Mammogram 1960 Depression Screening 1960 Osteoporosis Screening-Bone Density Scan 1960 DTaP/Tdap/Td Vaccine (1 - Tdap) 1969 Hepatitis B Screening 01/11/1976 Zoster Vaccine (1 of 2) 1977 Pneumococcal vaccine 65+ (2 of 2 - PPSV23, PCV20, or PCV21) 04/20/2019 02/23/2019 Covid-19 Vaccine (2 - Jansse n risk series) 07/02/2020 06/04/2020 Fall Risk Assessment 12/05/2020 12/06/2019 Well Visit 65+ 2023 Influenza Vaccine (#1) 2024 1, 01/09/2020, 03/03/2018, Additional history exists Colon Cancer Screening-Colonoscopy 11/27/2029 11/28/2019 Hepatitis C Screening Completed 11/04/2018 Colon Cancer Screening-CT Colonography Discontinued 11/28/2019 Colon Cancer Screening-DNA Stool Discontinued 11/28/19 20 Colon Cancer Screening-FIT Discontinued 11/28/2019 Colon Cancer Screening-Sigmoidoscopy Discontinued 11/28/2019 Procedures Procedure Name Priority Date/Time Associated Diagnosis Comments SCAN - RADIOLOGY/IMAGING 09/07/2024 COLONOSCOPY 11/28/2019 9:44 AM CDT HEPATITIS C ANTIBODY Routine 11/04/2018 1:55 PM CDT Cirrhosis, nonalcoholic (HCC) from Last 3 Months or Most Recently Relevant to Health Maintenance Results * SCAN - RADIOLOGY/IMAGING (09/07/2024) Anatomical Region Laterality Modality Other us Provider Scanning Final Result * COLONOSCOPY (11/28/2019 9:44 AM CDT) Anatomical Region Laterality Modality Other Narrative Procedure Note Florin Holliday MD - 11/28/2019 9:44 AM CDT [facility] ENDOS[facility] Patient Name: Serena Humphries Procedure Date: 11/28/2019 9:44 AM Date of : 1960 Admit Type: Outpatient Age: 59 Gender: Female Attending MD: Florin Holliday M.D. Room: [facility] END[facility]COPY ROOM 9 Note Status: Finalized Procedure: [...] The scope was passed under direct vision.The [id number] endoscope was introduced throughthe anus and advanced to the terminal ileum. The colonoscopy was performed without difficulty. The patient tolerated the procedure fairly well. The quality of the bowel preparation was evaluated using the BBPS ([place] Bowel Preparation Scale) withscores of: Right Colon [...] On: 11/28/2019 9:44 AM Recognized by the [place] [employer] for promoting quality [...] RNA Detection and Quantitation by Real-Time Reverse Stockbroking Dealer-PCR (RT-PCR). Current interpretive data was last revised on 2016. Blood specimen (specimen) 11/04/2018 1:55 PM CDT 11/04/2018 4:52 PM CDT us Harry Moser MD LAB MICROBIOLOGY - GEN ERAL ORDERABLES Edited Result - Final VIJAY PARRA [facility] Department [place] [address] from Last 3 Months or Most Recently Relevant to Health Maintenance Insurance MEDICARE BLUE CROSS MEDICARE SUPPLEMENT FOR[facility]LY [facility] TRADITIONAL MEDICARE [facility] MEDICARE SUPPLEMENT Advance Directives For more information, please contact: [phone] Documents on File Type Date Recorded Patient Group Product Manager Expl anation ADVANCE DIRECTIVE 12/05/2019 5:57 AM POWER OF GLASS DRILLER-MEDICAL * Full Code (Latest Code Status on File) Date Activated Date Inactivated Comments 11/29/2019 4:44 AM 12/06/2019 9:10 PM * Full Code Date Activated Date Inactivated Comments 11/24/2018 2:39 PM 11/25/2018 4:49 AM Care Teams Parking Lot Attendant And Cashier Relationship Specialty Start Date End Date Aleah Schwartz MD [address] [place] [address] [place] [address] PCP - General Family Medicine 02/18/24 Lore Camejo MD Consulting Physician Colon and Rectal Surgery 12/14/19 Leslie Piña MD [address] [place] [address] Medical Oncology 08/21/21 Harry Mosre MD [address] [place] [address] Transplant Hepatology 08/21/21
--- OUTSIDE RECORDS SUMMARY | 2024-11-22 14:19 | XMS_ITS | Encounter Summary ---
Author Organization [facility] Address [address] [place] [address] Care Team Providers Care Machine Stripper Cutter Name Role Phone Lore Camejo MD Unavailable [phone] Leslie Piña MD Unavailable [phone] Harry Moser MD Unavailable [phone] Crys Nye Primary Care Provider Francisco Casarez MD Primary Care Provider [phone] Aleah Schwartz MD Primary Care Provider + Encounter Details Date Type Department Care Team (Late st Contact Info) Description 02/07/2020 Telephone [facility]) [facility] [place] [address] Janet Long, RT Social History Tobacco Use Types Packs/Day Years Used Date Smoking Tobacco: Never Smokeless Tobacco: Never Alcohol Use Standard Drinks/Week Comments Not Currently 0 (1 standard drink = 0.6 oz pur e alcohol) Previously heavy Comments No Sex and Gender Information Value Date Recorded Sex Assigned at Not on file Legal Sex Female 5:33 AM EMERGENCY MEDICINE SPECIALIST Gender Identity Not on file Sexual Orientation Not on file documented as of this encounter Plan of Treatment Not on file documented as of this encounter Visit Diagnoses Not on filedocumented in this encounter Care Teams Machine Stripper Cutter Relationship Specialty Start Date End Date Crys Nye PA [address] [place] [address] PCP - General Physician Fishing Rod Trimmer 11/25/21 08/24/22 Francisco Casarez MD [address] [place] [address] PCP - General Family Medicine 08/25/22 02/17/24 Aleah Schwartz MD [address] [place] [address] [place] [address] PCP - General Family Medicine 02/18/24 Lore Camejo MD Consulting Physician Colon and Rectal Surgery 12/14/19 Leslie Piña MD [address] [place] [address] Medical Oncology 08/21/21 Harry Moser MD [address] [place] [address] Transplant Hepatology 08/21/21 documented as of this encounter
--- OUTSIDE RECORDS SUMMARY | 2024-11-22 14:19 | XMS_ITS | Encounter Summary ---
Author Organization [facility] Address [address] [place] [address] Phone Care Team Providers Care Compensation Associate Name Role Phone Lore Camejo MD Unavailable [phone] Leslie Piña MD Unavailable [phone] Harry Moser MD Unavailable [phone] Francisco Casarez MD Primary Care Provider [phone] Aleah Schwartz MD Primary Care Provider + [...] on file Legal Sex Female 5:33 AM PUSHER RUNNER Gender Identity Not on file Sexual Orientation [...] on filedocumented in this encounter Care Teams Compensation Associate Relationship Specialty Start Date End Date Francisco Casarez MD [address] [place] [address] PCP - General Family Medicine 08/25/22 02/17/24 Aleah Schwartz MD [address] [place] [address] [place] [address] PCP - General [facility] Medicine 02/18/24 Lore Camejo MD Consulting Physician Colon and Rectal Surgery 12/14/19 Leslie Piña MD [address] [place] [address] Medical Oncology 08/21/21 Harry Moser MD [address] [place] [address] Transplant Hepatology 08/21/21 documented as of this encounter
== END 2024-11-22 13:57 | disposition home or self-care (01) ==
PROVIDERS: PCP Family Medicine; Visit Provider Student in an Organized Health Care Education/Training Program
DX: R09.89 Other specified symptoms and signs involving the circulatory and respiratory systems (principal); L30.9 Dermatitis, unspecified
CPT/HCPCS: 93922

== ENCOUNTER 2025-02-16 15:02 | Outpatient (CLI) | payer MEDICARE, SELFPAY ==
--- NOTE | ~2025-02-16 | MM_ITS ---
EXAMINATION: MM screening beatriz BI w britton HISTORY: Screening TECHNIQUE: Craniocaudal and mediolateral oblique 3-D tomosynthesis images were obtained and synthetic 2-D images were generated. CAD analysis was submitted and interpreted. COMPARISON: Comparison to multiple prior studies sequentially, with oldest reviewed study dated 10/13/2018. BREAST PARENCHYMAL COMPOSITION: Not Dense: The breasts are almost entirely fatty. FINDINGS: There is no evidence of suspicious mass, calcification, or architectural distortion to suggest malignancy in either breast. There has been no suspicious interval change. IMPRESSION: 1. No mammographic evidence of malignancy. 2. Recommend routine screening mammography in one year. BI-RADS Category 1: Negative Reviewed, dictated and finalized at location B. [facility]
--- OUTSIDE RECORDS SUMMARY | 2025-02-16 15:07 | XMS_ITS ---
Author Organization [facility] Address [address] [place] [address] Care Team Providers Care Pilot Highway Patrol Name Role Phone Lore Camejo MD Unavailable [phone] Leslie Piña MD Unavailable [phone] Harry Moser MD Unavailable [phone] Aleah Schwartz MD Primary Care Provider + Active Problems Patient Care Coordination No te Formatting of this note migh t be different from the original. 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 Assessment & Plan (12/31/2023 5:54 PM CDT): She understands the importance of long-term abstinence. A return to heavy drinking would clearly lead to additional liver injury and decompensation. Alcoholic cirrhosis of liver without ascites Assessment & Plan (01/26/2025 6:42 PM CDT): Well compensated and without complications of portal hypertension or hepatic synthetic dysfunction. As long as she abstains from alcohol, her future is bright. I did stress the importance of weight control. This could lead to additional hepatic steatosis that could contribute to progressive hepatic fibrosis. She requires imaging of the liver every 6 months as a screen for hepatocellular carcinoma. Imaging studies will also be used to see if there is recurrent neuroendocrine tumor. She will return in 1 year or when clinically indicated. Assessment & Plan (12/31/2023 5:54 PM CDT): [...] DLP 1,184 mGycm 1,184 mGycm 0 mGycm Resolved Problems Problem Noted Date Diagnosed Date Resolved Date Pain of upper abdomen 11/10/20192024 Assessment & Plan (11/10/2019 6:55 PM CDT): [...]
--- OUTSIDE RECORDS SUMMARY | 2025-02-16 15:07 | XMS_ITS | Clinical Summary ---
Author Organization [facility] Address [address] [place] [address] Care Team Providers Care Avionics Mechanic Name Role Phone Lore Camejo MD Unavailable [phone] Leslie Piña MD Unavailable [phone] Harry Moser MD Unavailable [phone] Aleah Schwartz MD Primary Care Provider + [...] 1 capsule (75 mcg total) by mouth early intervention school psychologist before breakfast Active nortriptyline (PAMELOR) 10 mg capsule Take 1 capsule (10 mg total) by mouth nightly Active cholecalciferol -soy isoflavone 2,000-64 unit-mg tablet Take by mouth 2 (two) times a day Active Ozempic 0.25 mg or 0.5 mg (2 mg/3 mL) pen injector injection Q weekly 2mg 3 Active biotin 1 mg capsule Take 6,000 [...] tablet (20 mg total) daily 4 Active terbinafine (LamiSIL) 250 mg tablet Take 1 tablet (250 mg total) by mouth daily 5 Active irbesartan (AVAPRO) 75 mg tablet Take 1 tablet (75 mg total) by mouth 4 01/27/20 25 Discontinu ed(Patient Reported) Active Problems Patient Care Coordination No te Formatting of this note migh t be different from the original. 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 Abnormal mammogram 12/20/2015 Resolved Problems Problem Noted Date Diagnosed Date [...] based on the results of the studies. Encounters Date Type Department Care Team Description 01/26/2025 1:20 PM CDT Office Visit [facility] Medicine Gastroenterology [address] [facility] 12th [place] [address] [place] [address] Harry Moser MD Alcoholic cirrhosis of liver without ascites (HCC) (Primary Dx); Alcohol dependence in remission (HCC) 01/18/2025 Telephone [facility] Medicine Gastroenterology [address] [facility] 12th [place] [address] [place] [address] Aleah Finn New Medication prescribed by PCP from Last 3 Months Immunizations Immunization Administration Dates Next Due Influenza, Quadrivalent, Spl it, Preservative Free, Intramuscular 01/09/2020,03/03/2018,02/22/2015 Influenza, Trivalent, Preser vative Free, Intramuscular 05/09/2016 Influenza, Unspecified 02/04/2021 wavecatch (J&J) SARS-CoV-2 Vaccination 06/04/2020 Pneumococcal Conjugate PCV 13 02/23/2019 Surgical History Surgery Date Site/Laterality Comments HYSTERECTOMY COLONOSCOPY CHOLECYSTECTOMY BLADDER SUSPENSION US GUIDED BIOPSY LIVER 11/24/2018 N/A EXPLORATORY LAPAROTOMY W/ LAURA WEL RESECTION 11/30/2019 abdominal washout and Ileocolic resection with primary anastomosis Medical History Medical History Date Comments IBS (irritable bowel syndrome) Hypothyroidism HTN (hypertension) HLD (hyperlipidemia) Alcoholic cirrhosis (HCC) Diabetes Family History Medical History Relation Name Comments [...] on file Legal Sex Female 5:33 AM FISHERIES TECHNICIAN Gender Identity Not on file Sexual Orientation Not on file Last Filed Vital Signs Vital Sign Reading Time Taken Comments Blood Pressure 116/82 01/26/2025 1:04 PM CDT Pulse 72 01/26/2025 1:04 PM CDT Temperature 36.5 C (97.7 F) 01/26/2025 1:04 PM CDT Respiratory Rate 16 01/26/2025 1:04 PM CDT Oxygen Saturation 96% 01/26/2025 1:04 PM CDT Inhaled Oxygen Concentration - - Weight 83.9 kg (185 lb) 01/26/2025 1:04 PM CDT Height 165.1 cm (5' 5) 01/26/2025 1:04 PM CDT Body Mass Index 30.79 01/26/2025 1:04 PM CDT Plan of Treatment Health Maintenance Due Date Last Done Comments Breast Cancer Screening-Mammogram 1960 Depression Screening 1960 Osteoporosis Screening-Bone Density Scan 1960 Hepatitis B Screening 01/11/1976 Pneumococcal vaccine 65+ (2 of 2 - PPSV23, PCV20, or PCV21) 04/20/2019 02/23/2019 DTaP/Tdap/Td Vaccine (2 - Td or Tdap) 02/05/2020 02/04/2010, 01/21/2005 Fall Risk Assessment 12/05/2020 12/06/2019 Well Visit 65+ 2023 Covid-19 Vaccine (2024-2 6 season) 2024 08/19/2021, 02/19/2021, 06/04/2020 Influenza Vaccine (#1) 2024 , 01/09/2020, 03/03/2018, Additional history exists Colon Cancer Screening-Colonoscopy 11/27/2029 11/28/2019 Hepatitis C Screening Completed 11/04/2018 Colon Cancer Screening-CT Colonography Discontinued 11/28/2019 Colon Cancer Screening-DNA Stool Discontinued 11/28/19 Colon Cancer Screening-FIT Discontinued 11/28/2019 Colon Cancer Screening-Sigmoidoscopy Discontinued 11/28/2019 Zoster Vaccine Completed 09/24/2022, 06/05/2022 Procedures Procedure Name Priority Date/Time Associated Diagnosis [...] Female Attending MD: Florin Holliday M.D. Room: [facility] 9 Note Status: Finalized Procedure: [...] The scope was passed under direct vision.The CF [id number] endoscope was introduced throughthe anus and advanced to the terminal ileum. The colonoscopy was performed without difficulty. The patient tolerated the procedure fairly well. The quality of the bowel preparation was evaluated using the BBPS (Mcgregor Bowel Preparation Scale) withscores of: Right Colon [...] On: 11/28/2019 9:44 AM Recognized by the [employer] for promoting quality in endoscopy us Florin Chowdhury MD ENDOSCOPY PROCEDURES Final Res ult * Hepatitis C antibody (11/04/2018 1:55 PM CDT) Hep C Ab Nonreactive Nonreactive VIJAY PARRA Comment: Interpretive Data Positive results should be confirmed by a molecular method. If positive, a second separately collected sample should be submitted for Hepatitis C Virus (HCV) RNA Detection and Quantitation by Real-Time Reverse Motor Hotel Manager-PCR (RT-PCR). Current interpretive data was last revised on 2016. Blood specimen (specimen) 11/04/2018 1:55 PM CDT 11/04/2018 4:52 PM CDT us Harry Moser MD LAB MICROBIOLOGY - GEN ERAL ORDERABLES Edited Result - Final VIJAY PARRA [facility] Department [place] [address] from Last 3 Months or Most Recently Relevant to Health Maintenance Insurance MEDICARE [facility] MEDICARE SUPPLEMENT MEDICARE [facility] MEDICARE SUPPLEMENT Advance Directives For more information, please contact: [phone] Documents on File Type Date Recorded Patient Egg Crater Expl anation ADVANCE DIRECTIVE 12/05/2019 5:57 AM POWER OF [employer] * Full Code (Latest Code Status on File) Date Activated Date Inactivated Comments 11/29/2019 4:44 AM 12/06/2019 9:10 PM * Full Code Date Activated Date Inactivated Comments 11/24/2018 2:39 PM 11/25/2018 4:49 AM Care Teams Avionics Mechanic Relationship Specialty Start Date End Date Aleah Schwartz MD [address] [place] [address] PCP - General Family Medicine 02/18/24 Lore Camejo MD Consulting Physician Colon and Rectal Surgery 12/14/19 Leslie Piña MD [address] [place] [address] Medical Oncology 08/21/21 Harry Moser MD [address] [place] [address] Transplant Hepatology 08/21/21
--- OUTSIDE RECORDS SUMMARY | 2025-02-16 15:07 | XMS_ITS | Encounter Summary ---
Author Organization [facility] Address [address] [place] [address] Care Team Providers Care Medical Massage Therapist Name Role Phone Lore Camejo MD Unavailable [phone] Leslie Piña MD Unavailable [phone] Harry Moser MD Unavailable [phone] Crys Nye Primary Care Provider Francisco Casarez MD Primary Care Provider [phone] Aleah Schwartz MD Primary Care Provider + Encounter Details Date Type Department Care Team (Late st Contact Info) Description 02/07/2020 Telephone [facility]) [facility] [place] [address] Janet Long, RT Social History Tobacco Use Types Packs/Day Years Used Date Smoking Tobacco: Never Smokeless Tobacco: Never Alcohol Use Standard Drinks/Week Comments Not Currently 0 (1 standard drink = 0.6 oz pur e alcohol) Previously heavy Comments No Sex and Gender Information Value Date Recorded Sex Assigned at Not on file Legal Sex Female 5:33 AM OCCASIONAL BABYSITTER Gender Identity Not on file Sexual Orientation Not on file documented as of this encounter Plan of Treatment Not on file documented as of this encounter Visit Diagnoses Not on filedocumented in this encounter Care Teams Medical Massage Therapist Relationship Specialty Start Date End Date Crys Nye PA [address] [place] [address] PCP - General Physician Archeology Faculty Member 11/25/21 08/24/22 Francisco Casarez MD [address] [place] [address] PCP - General Family Medicine 08/25/22 02/17/24 Aleah Schwartz MD [address] [place] [address] [place] [address] PCP - General Family Medicine 02/18/24 Lore Camejo MD Consulting Physician Colon and Rectal Surgery 12/14/19 Leslie Piña MD [address] [place] [address] Medical Oncology 08/21/21 Harry Moser MD [address] [place] [address] Transplant Hepatology 08/21/21 documented as of this encounter
--- OUTSIDE RECORDS SUMMARY | 2025-02-16 15:07 | XMS_ITS | Encounter Summary ---
Author Organization 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 Gender Identity Not on file Sexual [...] on filedocumented in this encounter Care Teams Chainsaw Mechanic Relationship Specialty Start Date End Date Francisco Casarez MD [address] [place] [address] PCP - General Family Medicine 08/25/22 02/17/24 Aleah Schwartz MD [address] [place] [address] [place] [address] PCP - General [facility] Medicine 02/18/24 Lore Camejo MD Consulting Physician Colon and Rectal Surgery 12/14/19 Leslie Piña MD [address] [place] [address] Medical Oncology 08/21/21 Harry Moser MD [address] [place] [address] Transplant Hepatology 08/21/21 documented as of this encounter
--- OUTSIDE RECORDS SUMMARY | 2025-02-16 15:07 | XMS_ITS | Encounter Summary ---
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 Gender Identity Not on file Sexual Orientation [...] on filedocumented in this encounter Care Teams Integration Architect Relationship Specialty Start Date End Date Crys Nye PA [address] [place] [address] PCP - General Physician Air Grinder 11/25/21 08/24/22 Francisco Casarez MD [address] [place] [address] PCP - General Family Medicine 08/25/22 02/17/24 Aleah Schwartz MD [address] [place] [address] [place] [address] PCP - General Family Medicine 02/18/24 Lore Camejo MD Consulting Physician Colon and Rectal Surgery 12/14/19 Leslie Piña MD [address] [place], [place] [address] Medical Oncology 08/21/21 Harry Moser MD [address] [place] [address] Transplant Hepatology 08/21/21 documented as of this encounter
--- OUTSIDE RECORDS SUMMARY | 2025-02-16 15:07 | XMS_ITS | Encounter Summary ---
Author Organization [facility] [employer] [facility] Address [address] [place] [address] Phone Care Team Providers Care Meat Pumper Name Role Phone Lore Camejo MD Unavailable [phone] Leslie Piña MD Unavailable [phone] Harry Moser MD Unavailable [phone] Aleah Schwartz MD Primary Care Provider + Encounter Details Date Type Department Care Team (Late st Contact Info) Description 10/26/2024 Orders Only [facility] Scanning, Provider Social History Tobacco Use Types Packs/Day Years Used Date Smoking Tobacco: Never Smokeless Tobacco: Never Alcohol Use Standard Drinks/Week Comments Not Currently 0 (1 standard drink = 0.6 oz pur e alcohol) Previously heavy Comments No Sex and Gender Information Value Date Recorded Sex Assigned at Not on file 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 Gender Identity Not on file Sexual Orientation Not on file documented as of this encounter Plan of Treatment Not on file documented as of this encounter Procedures Procedure Name Priority Date/Time Associated Diagnosis Comments SCAN - LABS 10/26/2024 documented in this encounter Results * SCAN - LABS (10/26/2024) us Provider Scanning Edited Result - Final documented in this encounter Visit Diagnoses Not on filedocumented in this encounter Care Teams Meat Pumper Relationship Specialty Start Date End Date Aleah Schwartz MD [address] [place] [address] [place] [address] PCP - General Family Medicine 02/18/24 Lore Camejo MD Consulting Physician Colon and Rectal Surgery 12/14/19 Leslie Piañ MD [address] [place] [address] Medical Oncology 08/21/21 Harry Moser MD [address] [place] [address] Transplant Hepatology 08/21/21 documented as of this encounter
--- OUTSIDE RECORDS SUMMARY | 2025-02-16 15:07 | XMS_ITS | Encounter Summary ---
Author Organization [facility] Address [address] [place] [address] Care Team Providers Care Mangle Tender Name Role Phone Lore Camejo MD Unavailable [phone] Leslie Piña MD Unavailable [phone] Harry Moser MD Unavailable [phone] Crys Nye Primary Care Provider Francisco Casarez MD Primary Care Provider [phone] Aleah Schwartz MD Primary Care Provider + Encounter Details Date Type Department Care Team (Late st Contact Info) Description 11/19/[address] 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 Gender Identity Not on file Sexual Orientation [...] 11/09/2019 added in this encounter Care Teams Mangle Tender Relationship Specialty Start Date End Date Crys Nye PA [address] [place] [address] PCP - General Physician Motor Vehicles Inspector 11/25/21 08/24/22 Francisco Casarez MD [address] [place] [address] PCP - General Family Medicine 08/25/22 02/17/24 Aleah Schwartz MD [address] [place] [address] [place] [address] PCP - General Family Medicine 02/18/24 Lore Camejo MD Consulting Physician Colon and Rectal Surgery 12/14/19 Leslie Piña MD [address] [place] [address] Medical Oncology 08/21/21 Harry Moser MD [address] [place] [address] Transplant Hepatology 08/21/21 documented as of this encounter
== END 2025-02-16 15:03 | disposition home or self-care (01) ==
LOC: ANHFOHIMG 15:03
PROVIDERS: PCP Family Medicine; Visit Provider Family Medicine
DX: Z12.31 Encounter for screening mammogram for malignant neoplasm of breast (principal)
CPT/HCPCS: 77063; 77067